=== PATIENT | male | born 1995 | race Caucasian/White ===

== ENCOUNTER 2023-10-02 10:56 | Emergency (ER) | payer MEDICAID ==
[~2023-10-02] VITALS: Ht 175.3 cm; Wt 86.0 kg
[2023-10-02 11:12] VITALS: O2SAT 100
[2023-10-02 12:20] VITALS: BP 118/76; PULSE 85; TEMP 37.11408; O2SAT 99
[2023-10-02 12:30] VITALS: RESP 16
[2023-10-02] MEDS: IBUPROFEN 800MG TABLET PO ONE (12:30)
== END 2023-10-02 13:02 | disposition home or self-care (01) ==
LOC: ER 11:17
DX: J06.9 Acute upper respiratory infection, unspecified (principal)
CPT/HCPCS: 71045; 99283